=== PATIENT | female | born 1990 | race Two or more races ===

== ENCOUNTER 2019-08-19 14:00 | Inpatient (IN) | payer OTHER ==
[~2019-08-19] VITALS: Ht 167.6 cm; Wt 89.4 kg
[2019-08-30] MEDS ORDERED: PRENATAL CAPLE1 EAC1 PO (05:00)
[2019-08-30] MEDS ORDERED: PROTONIX40 MG PO (05:00)
== END 2019-09-03 17:23 | disposition home or self-care (01) | DRG 788 ==
LOC: LDR 08-28 14:00 → OB/GYN 08-28 14:00 → LDR 08-30 03:33 → SURG-SUITE 08-30 03:33 → LDR 08-30 04:41 → SURG-SUITE 08-31 00:03
PROVIDERS: Obstetrics & Gynecology; ADMIT Specialist; ATTEND Specialist
PROC: 3E0P7VZ Introduction of Hormone into Female Reproductive, Via Natural or Artificial Opening (ICD-10-PCS; 2019-08-30)
PROC: 3E033VJ Introduction of Other Hormone into Peripheral Vein, Percutaneous Approach (ICD-10-PCS; 2019-08-30)
PROC: 4A1HXCZ Monitoring of Products of Conception, Cardiac Rate, External Approach (ICD-10-PCS; 2019-08-30)
PROC: 10D00Z1 Extraction of Products of Conception, Low, Open Approach (ICD-10-PCS; principal; 2019-08-30 22:00)
DX: O62.0 Primary inadequate contractions (principal); O48.0 Post-term pregnancy; Z3A.40 40 weeks gestation of pregnancy; Z37.0 Single live birth